=== PATIENT | male | born 1955 | race Caucasian/White ===

== ENCOUNTER → 2024-08-14 | Outpatient (CLI) | payer MEDICARE, BC, SELFPAY ==
--- NOTE | 2024-08-14 14:30 | XR_ITS ---
Examination: CT pelvis without intravenous contrast. 2-D sagittal and coronal reconstructions. Date and time of exam:August 14, 2024 1448 hours INDICATIONS: Pelvic discomfort bilateral inguinal hernias one year CTDI: vol (mGy) :6.24 DLP: (mGycm) : 201 Technique: Multiple 3 mm axial sections of the pelvis have been obtained with the 64 slice high resolution scanner. 2-D sagittal and coronal reconstructions. Low dose protocols were performed. One or more of the following dose reduction techniques were used; automated exposure control, adjustment of the mA and/or KV according to patient size, use of iterative reconstruction technique. Findings: Normal appendix No bowel obstruction Colonic diverticulosis Urinary bladder intact Bilateral fat-containing inguinal hernias Prostatomegaly, transverse dimension 4.7 cm Moderate disc narrowing L3-L4 IMPRESSION: Normal appendix Bilateral fat-containing inguinal hernias
== END | disposition home or self-care (01) ==
PROVIDERS: PCP Nurse Practitioner Family; Referring Provider Nurse Practitioner Family; Visit Provider Nurse Practitioner Family
DX: K40.90 Unilateral inguinal hernia, without obstruction or gangrene, not specified as recurrent (principal)
CPT/HCPCS: 72192

== ENCOUNTER → 2024-08-29 | Outpatient (CLI) | payer MEDICARE, BC, SELFPAY ==
[2024-08-29 09:17] LABS: Basophils % (Auto) 1 % (0-2.5); Eosinophils # (Auto) 0.1 Thou/mm3 (0.0-0.5); Eosinophils % (Auto) 2 % (0-10); Hematocrit 42.9 % (41.0-53.0); Hemoglobin 14.1 g/dL (13.5-16.0); Immature Granulocytes % (Auto) 0 % (0-0); Immature Granulocytes Auto 0.02 Thou/mm3 (0.00-0.00); Lymphocytes # (Auto) 1.1 Thou/mm3 (1.0-4.8); Lymphocytes % (Auto) 25 % (10-50); Mean Corpuscular HGB Conc 32.9 g/dl (31.0-37.0); Mean Corpuscular Hemoglobin 30.9 pg (25.0-35.0); Mean Corpuscular Volume 94 fL (80-100); Monocytes # (Auto) 0.5 Thou/mm3 (0.0-0.8); Monocytes % (Auto) 11 % (0-12); Neutrophils # (Auto) 2.7 Thou/mm3 (1.8-7.7); Neutrophils % (Auto) 61 % (37-80); Nucleated Red Blood Cell % 0 /100 WBC (0); Platelet Count 295 Thou/mm3 (140-440); RDW Standard Deviation 48.4 fL (35.1-43.9); Red Blood Count 4.56 Miln/mm3 (4.50-5.90); White Blood Count 4.5 Thou/mm3 (3.8-10.6)
[2024-08-29 09:24] LABS: Glucose Estimated Average 111 mg/dL (80-131); Hemoglobin A1C 5.5 % Hgb (4.8-6.0)
[2024-08-29 09:43] LABS: Alanine Aminotransferase 27 U/L (10-49); Albumin, Serum 4.2 gm/dL (3.4-4.8); Albumin/Globulin Ratio 1.8 (1.2-2.2); Alkaline Phosphatase 63 U/L (46-116); Anion Gap 6 (7-16); Aspartate Amino Transferase 25 U/L (0-34); BUN/Creatinine Ratio 13 Ratio (12-20); Bilirubin,Total 0.8 mg/dL (0.3-1.2); Blood Urea Nitrogen 12 mg/dL (9-23); Calcium 9.6 mg/dL (8.3-10.6); Calcium (Corrected) 9.6 mg/dL (8.5-10.1); Carbon Dioxide 29.3 mMol/L (20.0-31.0); Cardiac Risk Estimate 2.3 RATIO (4.0-6.7); Chloride 107 mMol/L (98-107); Cholesterol 169 mg/dL (132-200); Creatinine (Component) 0.9 mg/dL (0.6-1.3); Folate 16.79 ng/mL (>5.38); Free T4 (Free Thyroxine) 1.29 ng/dL (0.89-1.76); Globulin 2.3 gm/dL (2.3-3.5); Glucose 100 mg/dL (74-106); HDL Cholesterol 72 mg/dL (40-60); LDL Cholesterol,Calculated 80 mg/dL (0-130); Osmolality,Calculated 282 (275-295); Potassium 4.4 mMol/L (3.4-5.1); Sodium 142 mMol/L (136-145); Thyroid Stimulating Hormone 2.59 uIU/mL (0.55-4.78); Total Protein 6.5 gm/dL (5.7-8.2); Triglycerides 87 mg/dL (30-150); Vitamin B12 666 pg/mL (211-911); Vitamin D 25 Hydroxy Total 57.2 ng/mL (7.3-40.2); eGFR > 60 See Note
== END | disposition home or self-care (01) ==
LOC: COPL 08:35
PROVIDERS: PCP Nurse Practitioner Family; Referring Provider Nurse Practitioner Family; Visit Provider Nurse Practitioner Family
DX: I10 Essential (primary) hypertension (principal); E78.2 Mixed hyperlipidemia; E55.9 Vitamin D deficiency, unspecified; Z13.29 Encounter for screening for other suspected endocrine disorder; Z13.1 Encounter for screening for diabetes mellitus; Z12.5 Encounter for screening for malignant neoplasm of prostate; R53.83 Other fatigue
CPT/HCPCS: 36415; 80053; 80061; 82306; 82607; 82746; 83036; 84153; 84154; 84439; 84443; 85025

== ENCOUNTER 2025-01-01 08:25 | Day surgery (SDC) | payer MEDICARE, BC, SELFPAY ==
[2024-12-29 15:53] VITALS: BMI 21.8
[2025-01-01] VITALS (11 sets, daily range): BP systolic 105–118; BP diastolic 65–88; PULSE 54–71; RESP 14–21; TEMP 36.1–36.9; O2SAT 96–100
[2025-01-01] MEDS: SODIUM CHLORIDE 0.9% 500 ML 500 ML 20 ML IV (10:09)
[2025-01-01] MEDS: LIDOCAINE JELLY 2% (Urojet) 10 ML TUBE TOP (10:09)
[2025-01-01] MEDS: fentaNYL CIT INJ 50 mCg/ML AMP 2ML (ASD USE ONLY) IVP (10:11)
[2025-01-01] MEDS: MIDAZOLAM INJ 1 MG/ML VIAL 2 ML (ASD USE ONLY) 2 MG IVP (10:11)
[2025-01-01] MEDS: DiphenhydrAMINE INJ 50 MG/ML VIAL 25 MG IVP (10:18)
--- NOTE | 2025-01-01 11:34 | SUR.PHASEII ---
1032: Pt received for recovery. Report from Fay RIVERS. Pt groggy, but awake. Resp even, unlabored. VS stable. No c/o pain, discomfort. 1105: Pt more awake, alert. VS stable. Sitting up tolerating po fluids with no difficulty swallowing and no n/v. 1120: Pt fully awake, oriented x3. VS stable. Pt assisted to restroom. Ambulations steady. Pt and stated understanding of discharge instructions. Pt discharged from [facility] in stable condition.
== END 2025-01-01 11:20 | disposition home or self-care (01) ==
PROVIDERS: PCP Nurse Practitioner Family; Referring Provider Specialist; Visit Provider Specialist
PROC: 0DBE8ZX Excision of Large Intestine, Via Natural or Artificial Opening Endoscopic, Diagnostic (ICD-10-PCS; CPT 45380; principal; 2025-01-01 10:15)
DX: Z12.11 Encounter for screening for malignant neoplasm of colon (principal); D12.3 Benign neoplasm of transverse colon; D12.4 Benign neoplasm of descending colon; K64.9 Unspecified hemorrhoids; K57.30 Diverticulosis of large intestine without perforation or abscess without bleeding; K63.89 Other specified diseases of intestine
CPT/HCPCS: 45385; 45380; J1200; J2250; J3010; J7040

== ENCOUNTER → 2025-04-30 | Outpatient (CLI) | payer MEDICARE, BC, SELFPAY ==
--- NOTE | 2025-04-30 09:52 | XR_ITS ---
EXAMINATION: Left knee 2 views TECHNIQUE: 1. AP lateral left knee 2 views Date and time: April 30, 2025, 0957 hours INDICATIONS: Left knee pain beginning 2 months ago. FINDINGS: Mild to moderate tricompartment osteoarthritis, most prominent medial joint space No fracture or dislocation Small knee effusion IMPRESSION: Mild to moderate tricompartment osteoarthritis
== END | disposition home or self-care (01) ==
LOC: CDIM 09:38
PROVIDERS: PCP Nurse Practitioner Family; Referring Provider Nurse Practitioner Family; Visit Provider Nurse Practitioner Family
DX: M17.12 Unilateral primary osteoarthritis, left knee (principal)
CPT/HCPCS: 73560

== ENCOUNTER → 2025-06-22 | Outpatient (CLI) | payer MEDICARE, BC, SELFPAY ==
--- NOTE | 2025-06-22 12:30 | XR_ITS ---
Exam: MRI knee without contrast, left Date and time of exam: June 22, 2025, 1332 hours INDICATIONS: Posterior knee pain swelling instability 2 months Technique: Multiple axial, coronal, and sagittal sections on the knee have been obtained. T2-Weighted sagittal, fat-suppressed images, TR 3,500, TE 62, T2 weighted coronal fat-saturated images, TR 3,500, TE 62 Proton density sagittal sections, TR 1800, TE 31. T-1 weighted coronal images, TR 524, TE 13.0 Findings: Medial meniscus anterior horn intact. Medial meniscus, body horizontal linear tear communicating inferior articular surface. Posterior horn medial meniscus horizontal linear tear communicating inferior articular surface. Lateral meniscus anterior horn is intact Lateral meniscus, body is intact Posterior horn lateral meniscus is intact Anterior cruciate ligament moderate sprain Posterior cruciate ligament appears intact. Knee effusion is small. Quadriceps and patellar tendons appear intact. There is no evidence of tendinosis. Inflammatory change or fracture of Hoffa's fat pad is not seen. Medial patellar facet demonstrates severe thinning. Lateral patellar facet cartilage demonstrates severe thinning. Trochlear cartilage demonstrates severe thinning. Marrow signal increased below the tibial spine. Medial collateral ligament appears intact. No meniscocapsular separation is seen. Illiotibial band and fibular collateral ligament are intact. Biceps femoris tendons appear intact. Medial femoral condylar articular cartilage demonstrates severe thinning. Lateral femoral condylar articular cartilage demonstrates severe thinning. Tibial plateau cartilage demonstrates severe thinning. Impression: Horizontal linear tear of the body and posterior horn medial meniscus Moderate sprain anterior cruciate ligament
== END | disposition home or self-care (01) ==
LOC: SMRI 12:12
PROVIDERS: PCP Nurse Practitioner Family; Referring Provider Nurse Practitioner Family; Visit Provider Nurse Practitioner Family
DX: S83.242A Other tear of medial meniscus, current injury, left knee, initial encounter (principal); S83.512A Sprain of anterior cruciate ligament of left knee, initial encounter; X58.XXXA Exposure to other specified factors, initial encounter
CPT/HCPCS: 73721